=== PATIENT | male | born 1965 | race Caucasian/White ===

== ENCOUNTER 2016-10-24 22:29 | Emergency (ER) | payer SELFPAY ==
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
[2016-10-25 05:55] VITALS: BP 142/92; PULSE 88; RESP 18; TEMP 98.6; O2SAT 96
== END 2016-10-25 05:54 | disposition home or self-care (01) ==
DX: S62.646A Nondisplaced fracture of proximal phalanx of right little finger, initial encounter for closed fracture (principal); S09.90XA Unspecified injury of head, initial encounter; F19.10 Other psychoactive substance abuse, uncomplicated; F17.200 Nicotine dependence, unspecified, uncomplicated; W01.0XXA Fall on same level from slipping, tripping and stumbling without subsequent striking against object, initial encounter; Y92.89 Other specified places as the place of occurrence of the external cause
CPT/HCPCS: 80305; L3925